=== PATIENT | male | born 1950 | race Caucasian/White ===

== ENCOUNTER → 2016-04-27 | Outpatient (CLI) | payer BC ==
[~2016-04-27] MED LIST: CHOL100010 PO; CLR10 PO; CYAN10005 PO; IBUP-1050 PO; RANITAB6 PO; SIMV80TA2 PO
== END | disposition home or self-care (01) ==
LOC: C.LABBFT 07:37
PROVIDERS: ATTEND Internal Medicine
DX: N41.9 Inflammatory disease of prostate, unspecified (principal)

== ENCOUNTER → 2016-12-15 | Outpatient (CLI) | payer BC | END | disposition home or self-care (01) | LOC: C.LABBFT 07:41 | PROVIDERS: ATTEND Physician Assistant Medical | DX: M25.649 Stiffness of unspecified hand, not elsewhere classified (principal); R20.0 Anesthesia of skin ==

== ENCOUNTER → 2017-05-06 | Outpatient (CLI) | payer BC | END | disposition home or self-care (01) | LOC: C.LABBFT 07:15 | PROVIDERS: ATTEND Internal Medicine | DX: E55.9 Vitamin D deficiency, unspecified (principal); E78.5 Hyperlipidemia, unspecified; R79.9 Abnormal finding of blood chemistry, unspecified ==

== ENCOUNTER → 2017-06-24 | Outpatient (CLI) | payer BC | END | disposition home or self-care (01) | LOC: C.LABSPEC 10:07 | DX: M25.461 Effusion, right knee (principal) ==

== ENCOUNTER → 2017-08-04 | Outpatient (CLI) | payer BC ==
--- NOTE | 2017-08-04 18:38 | DIAGNOSTIC IMAGING REPORT ---
BONE SCAN 3 PHASE LIMITED, BILATERAL KNEES HISTORY: Bilateral knee PAIN/SWELLING S/P TKA TECHNIQUE: Immediately and 3 hours following the intravenous demonstration of 27.5 mL of technetium 99 M MDP, 3 phase bone scan of the knees were performed. COMPARISON STUDY: Right knee 05/09/2014. Left knee 04/22/2011. FINDINGS: There is abnormal 3 phase periprosthetic uptake within the right knee. No abnormal radiotracer uptake within the left knee. IMPRESSION: 1. Positive three-phase periprosthetic uptake within the right knee. 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 2. No abnormal radiotracer uptake within the left knee. Electronically signed by: Neal Lundberg M.D. 08/04/2017 6:37 PM Dictated Date/Time: 08/04/2017 6:34 PM
== END | disposition home or self-care (01) ==
LOC: C.NUCL 14:59
DX: M25.461 Effusion, right knee (principal)